=== PATIENT | male | born 1940 | race Hispanic/Latino ===

== ENCOUNTER 2023-09-21 14:19 | Emergency (ER) | payer OTHER ==
--- OUTSIDE RECORDS SUMMARY | 2023-09-21 14:23 | XMS REPORT | Continuity of Care Document ---
:1940 Author Organization [facility] t Address [address] [facility] [place] [address] Care Team Providers Name Role Phone Tyler Sanchez Attending Clinician Unavailable Payers Payer Name Policy Type Policy Number Effective Date Expiration Date S ource [employer] MEDICARE 53 [id number] 2021 Common Sp esun 00:00:[address] [facility] HU[employer]NA MEDICARE C1 [id number] 2020 Common Sp seun 00:00:[address] - [facility] HU[employer]NA MEDICARE C1 [id number] 2020 Common Sp seun 00:00:[address] - [facility] [employer] MEDICARE C1 [id number] 2020 Common Sp seun 00:00:00 [facility] Problems Condition Condition Condition Status Onset Resolution Last Treating Co mments Source Name Details Category Date Date Treatment Clinician Date 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 - [facility] rhinitis, St unspecifie [facility] Urinary Urinary Problem Common tract (tract) Spirit obstructio obstructio - [facility] n n [facility] [id number] Acquired Problem Comm on hypothyroi Spirit dism [facility] [id number] Vitamin D Problem Comm on deficiency [facility] [id number] 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 Social History Social Habit Start Date Stop Date Quantity Comments Source History of Tobacco Use Co mmon [facility] Sex Assigned At Com mon [facility] Smoking Status Start Date Stop Date Source Never Smoker Common [facility] Former Smoker 2021-08-29 00:00:2021-08-29 00:00:00 [facility] Medications Ordered Filled Start Stop Current Ordering Indication Dosage Frequency Signature Comments Components Source Medication Medication Date Date Medication? Clinician (SIG) Name Name Zehra Shahid No 40mg Common (Triamcinol (Triamcinol 7-20 S pirit one) one) 00:00: [facility] Zehra Shahid No 40mg Common (Triamcinol (Triamcinol 7-20 S pirit one) one) 00:00: - [facility] Vitamin B12 Vitamin B12 No Vitamin B12 amLODIPine amLODIPine No amLODIPine Besy-Benaze Besy-Benaze Besy-Benaz pril HCl pril HCl epril HCl 5-10 MG 5-10 MG 5-10 MG amLODIPine amLODIPine No QD amLODIPine Besylate 5 Besylate 5 Besylate 5 MG MG MG Levothyroxi Levothyroxi No Levothyrox ne Sodium ne Sodium ine Sodium 125 MCG 125 MCG 125 MCG Capzasin Capzasin No Capzasin Levothyroxi Levothyroxi No QD Levothyrox ne Sodium ne Sodium ine Sodium 112 MCG 112 MCG 112 MCG Vitamin D3 Vitamin D3 No Vitamin D3 amLODIPine amLODIPine No QD amLODIPine Besy-Benaze Besy-Benaze Besy-Benaz pril HCl pril HCl epril HCl 5-10 MG 5-10 MG 5-10 MG Saw Saw No 2{capsu BID Saw [place] les} [place] 450 MG 450 MG 450 MG Tamsulosin Tamsulosin No Tamsulosin HCl 0.4 MG HCl 0.4 MG HCl 0.4 MG Vitamin B12 Vitamin B12 No Vitamin B12 amLODIPine amLODIPine No amLODIPine Besy-Benaze Besy-Benaze Besy-Benaz pril HCl pril HCl epril HCl 5-10 MG 5-10 MG 5-10 MG amLODIPine amLODIPine No QD amLODIPine Besylate 5 Besylate 5 Besylate 5 MG MG MG Levothyroxi Levothyroxi No Levothyrox ne Sodium ne Sodium ine Sodium 125 MCG 125 MCG 125 MCG Capzasin Capzasin No Capzasin Levothyroxi Levothyroxi No QD Levothyrox ne Sodium ne Sodium ine Sodium 112 MCG 112 MCG 112 MCG Vitamin D3 Vitamin D3 No Vitamin D3 amLODIPine amLODIPine No QD amLODIPine Besy-Benaze Besy-Benaze Besy-Benaz pril HCl pril HCl epril HCl 5-10 MG 5-10 MG 5-10 MG Saw Saw No 2{capsu BID Saw [place] les} [place] 450 MG 450 MG 450 MG Tamsulosin Tamsulosin No Tamsulosin HCl 0.4 MG HCl 0.4 MG HCl 0.4 MG Levothyroxi Levothyroxi No Levothyrox ne Sodium ne Sodium ine Sodium 125 MCG 125 MCG 125 MCG Tamsulosin Tamsulosin No Tamsulosin HCl 0.4 MG HCl 0.4 MG HCl 0.4 MG Vitamin B12 Vitamin B12 No Vitamin B12 amLODIPine amLODIPine No QD amLODIPine Besy-Benaze Besy-Benaze Besy-Benaz pril HCl pril HCl epril HCl 5-10 MG 5-10 MG 5-10 MG Saw Saw No 2{capsu BID Saw [place] les} [place] 450 MG 450 MG 450 MG Levothyroxi Levothyroxi No QD Levothyrox ne Sodium ne Sodium ine Sodium 112 MCG 112 MCG 112 MCG amLODIPine amLODIPine No amLODIPine Besy-Benaze Besy-Benaze Besy-Benaz pril HCl pril HCl epril HCl 5-10 MG 5-10 MG 5-10 MG Tamsulosin Tamsulosin No 2{capsu QD Tamsulosin HCl 0.4 MG HCl 0.4 MG le} HCl 0.4 MG Vitamin D3 Vitamin D3 No Vitamin D3 Levothyroxi Levothyroxi No Levothyrox ne Sodium ne Sodium ine Sodium 125 MCG 125 MCG 125 MCG Tamsulosin Tamsulosin No Tamsulosin HCl 0.4 MG HCl 0.4 MG HCl 0.4 MG Vitamin B12 Vitamin B12 No Vitamin B12 amLODIPine amLODIPine No QD amLODIPine Besy-Benaze Besy-Benaze Besy-Benaz pril HCl pril HCl epril HCl 5-10 MG 5-10 MG 5-10 MG Saw Saw No 2{capsu BID Saw [place] les} [place] 450 MG 450 MG 450 MG Levothyroxi Levothyroxi No QD Levothyrox ne Sodium ne Sodium ine Sodium 112 MCG 112 MCG 112 MCG amLODIPine amLODIPine No amLODIPine Besy-Benaze Besy-Benaze Besy-Benaz pril HCl pril HCl epril HCl 5-10 MG 5-10 MG 5-10 MG Tamsulosin Tamsulosin No 2{capsu QD Tamsulosin HCl 0.4 MG HCl 0.4 MG le} HCl 0.4 MG Vitamin D3 Vitamin D3 No Vitamin D3 amLODIPine amLODIPine No amLODIPine Besy-Benaze Besy-Benaze Besy-Benaz pril HCl pril HCl epril HCl 5-10 MG 5-10 MG 5-10 MG Levothyroxi Levothyroxi No Levothyrox ne Sodium ne Sodium ine Sodium 125 MCG 125 MCG 125 MCG Tamsulosin Tamsulosin No Tamsulosin HCl 0.4 MG HCl 0.4 MG HCl 0.4 MG Vitamin B12 Vitamin B12 No Vitamin B12 Saw Saw No 2{capsu BID Saw [place] les} [place] 450 MG 450 MG 450 MG Tamsulosin Tamsulosin No 2{capsu QD Tamsulosin HCl 0.4 MG HCl 0.4 MG le} HCl 0.4 MG Levothyroxi Levothyroxi No QD Levothyrox ne Sodium ne Sodium ine Sodium 112 MCG 112 MCG 112 MCG Vitamin D3 Vitamin D3 No Vitamin D3 amLODIPine amLODIPine No QD amLODIPine Besy-Benaze Besy-Benaze Besy-Benaz pril HCl pril HCl epril HCl 5-10 MG 5-10 MG 5-10 MG Vitamin B12 Vitamin B12 No Vitamin B12 Levothyroxi Levothyroxi No QD Levothyrox ne Sodium ne Sodium ine Sodium 125 MCG 125 MCG 125 MCG Tamsulosin Tamsulosin No Tamsulosin HCl 0.4 MG HCl 0.4 MG HCl 0.4 MG Tamsulosin Tamsulosin No 2{capsu QD Tamsulosin HCl 0.4 MG HCl 0.4 MG le} HCl 0.4 MG amLODIPine amLODIPine No amLODIPine Besy-Benaze Besy-Benaze Besy-Benaz pril HCl pril HCl epril HCl 5-10 MG 5-10 MG 5-10 MG Vitamin D3 Vitamin D3 No Vitamin D3 Saw Saw No 2{capsu BID Saw [place] les} [place] 450 MG 450 MG 450 MG Levothyroxi Levothyroxi No Levothyrox ne Sodium ne Sodium ine Sodium 112 MCG 112 MCG 112 MCG Vitamin B12 Vitamin B12 No Vitamin B12 Levothyroxi Levothyroxi No QD Levothyrox ne Sodium ne Sodium ine Sodium 125 MCG 125 MCG 125 MCG Tamsulosin Tamsulosin No Tamsulosin HCl 0.4 MG HCl 0.4 MG HCl 0.4 MG Tamsulosin Tamsulosin No 2{capsu QD Tamsulosin HCl 0.4 MG HCl 0.4 MG le} HCl 0.4 MG amLODIPine amLODIPine No amLODIPine Besy-Benaze Besy-Benaze Besy-Benaz pril HCl pril HCl epril HCl 5-10 MG 5-10 MG 5-10 MG Vitamin D3 Vitamin D3 No Vitamin D3 Saw Saw No 2{capsu BID Saw [place] les} [place] 450 MG 450 MG 450 MG Levothyroxi Levothyroxi No Levothyrox ne Sodium ne Sodium ine Sodium 112 MCG 112 MCG 112 MCG Levothyroxi Levothyroxi No QD Levothyrox ne Sodium ne Sodium ine Sodium 112 MCG 112 MCG 112 MCG Vitamin B12 Vitamin B12 No Vitamin B12 Vitamin D3 Vitamin D3 No Vitamin D3 amLODIPine amLODIPine No QD amLODIPine Besylate 5 Besylate 5 Besylate 5 MG MG MG amLODIPine amLODIPine No QD amLODIPine Besy-Benaze Besy-Benaze Besy-Benaz pril HCl pril HCl epril HCl 5-10 MG 5-10 MG 5-10 MG Capzasin Capzasin No Capzasin Tamsulosin Tamsulosin No 2{capsu QD Tamsulosin HCl 0.4 MG HCl 0.4 MG le} HCl 0.4 MG amLODIPine amLODIPine No QD amLODIPine Besy-Benaze Besy-Benaze Besy-Benaz pril HCl pril HCl epril HCl 5-10 MG 5-10 MG 5-10 MG Levothyroxi Levothyroxi No QD Levothyrox ne Sodium ne Sodium ine Sodium 112 MCG 112 MCG 112 MCG Saw Saw No 2{capsu BID Saw [place] les} [place] 450 MG 450 MG 450 MG Levothyroxi Levothyroxi No QD ne Sodium ne Sodium 112 MCG 112 MCG Vitamin D3 Vitamin D3 No Capzasin Capzasin No Saw Saw No 2{capsu BID [place] les} 450 MG 450 MG amLODIPine amLODIPine No Besy-Benaze Besy-Benaze pril HCl pril HCl 5-10 MG 5-10 MG amLODIPine amLODIPine No QD Besylate 5 Besylate 5 MG MG Levothyroxi Levothyroxi No QD ne Sodium ne Sodium 112 MCG 112 MCG Vitamin B12 Vitamin B12 No Levothyroxi Levothyroxi No QD Levothyrox ne Sodium ne Sodium ine Sodium 112 MCG 112 MCG 112 MCG Levothyroxi Levothyroxi No QD Levothyrox ne Sodium ne Sodium ine Sodium 112 MCG 112 MCG 112 MCG Vitamin D3 Vitamin D3 No Vitamin D3 amLODIPine amLODIPine No QD amLODIPine Besy-Benaze Besy-Benaze Besy-Benaz pril HCl pril HCl epril HCl 5-10 MG 5-10 MG 5-10 MG Capzasin Capzasin No Capzasin Vitamin B12 Vitamin B12 No Vitamin B12 amLODIPine amLODIPine No amLODIPine Besy-Benaze Besy-Benaze Besy-Benaz pril HCl pril HCl epril HCl 5-10 MG 5-10 MG 5-10 MG Saw Saw No 2{capsu BID Saw [place] les} [place] 450 MG 450 MG 450 MG amLODIPine amLODIPine No QD amLODIPine Besylate 5 Besylate 5 Besylate 5 MG MG MG Tamsulosin Tamsulosin No 2{capsu QD Tamsulosin HCl 0.4 MG HCl 0.4 MG le} HCl 0.4 MG Tamsulosin Tamsulosin 2021- No 2{capsu QD HCl 0.4 MG HCl 0.4 MG 02-15 le} 00:00 :00 Vital Signs Vital Name Observation Time Observation Value Comments Source height 2023-01-10 13:00:00 68 [in_i] Common [facility] weight 2023-01-10 13:00:00 186 [lb_av] Common [facility] temperature 2023-01-10 13:00:00 97.9 [degF] Common [facility] bmi 2023-01-10 13:00:00 28.28 kg/m2 Common [facility] oximetry 2023-01-10 13:00:00 93 % Common [facility] respiratory rate 2023-01-10 13:00:00 16 /min Comm on [facility] blood pressure 2023-01-10 13:00:00 113 mm[Hg] Common [facility] - systolic [facility] blood pressure 2023-01-10 13:00:00 55 mm[Hg] Common [facility] - diastolic [facility] height 2023-01-10 13:00:00 68 [in_i] Common [facility] weight 2023-01-10 13:00:00 186 [lb_av] Common [facility] temperature 2023-01-10 13:00:00 97.9 [degF] Common [facility] bmi 2023-01-10 13:00:00 28.28 kg/m2 Common [facility] oximetry 2023-01-10 13:00:00 93 % Common [facility] respiratory rate 2023-01-10 13:00:00 16 /min Comm on [facility] blood pressure 2023-01-10 13:00:00 113 mm[Hg] Common [facility] - systolic [facility] blood pressure 2023-01-10 13:00:00 55 mm[Hg] Common [facility] - diastolic [facility] height 2022-09-10 13:20:00 68 [in_i] Common [facility] weight 2022-09-10 13:20:00 186.7 [lb_av] Common [facility] temperature 2022-09-10 13:20:00 96.5 [degF] Common S pirit [facility] bmi 2022-09-10 13:20:00 28.38 kg/m2 Common [facility] oximetry 2022-09-10 13:20:00 95 % [facility] respiratory rate 2022-09-10 13:20:00 16 /min Comm on [facility] blood pressure 2022-09-10 13:20:00 118 mm[Hg] Common [facility] - systolic [facility] blood pressure 2022-09-10 13:20:00 57 mm[Hg] Common [facility] - diastolic [facility] height 2022-05-10 13:00:00 68 [in_i] Common [facility] weight 2022-05-10 13:00:00 186 [lb_av] [facility] temperature 2022-05-10 13:00:00 98.1 [degF] Common [facility] bmi 2022-05-10 13:00:00 28.28 kg/m2 [facility] oximetry 2022-05-10 13:00:00 98 % [facility] respiratory rate 2022-05-10 13:00:00 16 /min Comm on [facility] blood pressure 2022-05-10 13:00:00 135 mm[Hg] Common [facility] - systolic [facility] blood pressure 2022-05-10 13:00:00 72 mm[Hg] Common [facility] - diastolic [facility] height 2022-01-08 14:00:00 68 [in_i] Common [facility] weight 2022-01-08 14:00:00 185.7 [lb_av] Common [facility] temperature 2022-01-08 14:00:00 97.3 [degF] Common [facility] bmi 2022-01-08 14:00:00 28.23 kg/m2 Common [facility] oximetry 2022-01-08 14:00:00 97 % Common [facility] respiratory rate 2022-01-08 14:00:00 17 /min Comm on [facility] blood pressure 2022-01-08 14:00:00 135 mm[Hg] Common [facility] - systolic [facility] blood pressure 2022-01-08 14:00:00 76 mm[Hg] Common [facility] - diastolic [facility] height 2022-01-08 14:00:00 68 [in_i] Common [facility] weight 2022-01-08 14:00:00 185.7 [lb_av] [facility] temperature 2022-01-08 14:00:00 97.3 [degF] [facility] bmi 2022-01-08 14:00:00 28.23 kg/m2 [facility] oximetry 2022-01-08 14:00:00 97 % [facility] respiratory rate 2022-01-08 14:00:00 17 /min Comm on [facility] blood pressure 2022-01-08 14:00:00 135 mm[Hg] Common [facility] - systolic [facility] blood pressure 2022-01-08 14:00:00 76 mm[Hg] Common [facility] diastolic [facility] height 2021-09-18 10:00:00 68 [in_i] Common [facility] weight 2021-09-18 10:00:00 186.4 [lb_av] [facility] temperature 2021-09-18 10:00:00 97.6 [degF] [facility] bmi 2021-09-18 10:00:00 28.34 kg/m2 [facility] oximetry 2021-09-18 10:00:00 96 % [facility] respiratory rate 2021-09-18 10:00:00 16 /min Comm on [facility] blood pressure 2021-09-18 10:00:00 138 mm[Hg] Common [facility] - systolic [facility] blood pressure 2021-09-18 10:00:00 67 mm[Hg] Common [facility] - diastolic [facility] height 2021-06-05 10:50:00 68 [in_i] Common [facility] weight 2021-06-05 10:50:00 185.7 [lb_av] Common [facility] temperature 2021-06-05 10:50:00 97.3 [degF] Common [facility] bmi 2021-06-05 10:50:00 28.23 kg/m2 [facility] oximetry 2021-06-05 10:50:00 97 % [facility] respiratory rate 2021-06-05 10:50:00 17 /min Comm on [facility] blood pressure 2021-06-05 10:50:00 134 mm[Hg] Common [facility] - systolic [facility] blood pressure 2021-06-05 10:50:00 61 mm[Hg] Common [facility] - diastolic [facility] Procedures This patient has no known procedures. Encounters Start End Encounter Admission Attending Care Care Encounter Source Date/Time Date/Time Type Type Clinicians Facility Department ID 2022-09-06 Outpatient Sanchez, STLMLC STLC [id number] Common 13:48:01 Tyler [facility] 2022-05-11 Outpatient Sanchez, STLMLC STLC [id number] Common 08:12:01 Tyler [facility] 2022-01-04 Outpatient Sanchez, STLMLC STLMLC [id number] Common 14:45:02 Tyler [facility] 2021-11-15 Outpatient Sanchez, STLMLC STLC [id number] Common 14:20:42 Tyler [address] [facility] 2021-11-15 Outpatient Sanchez, STLMLC STLMLC [id number] Common 13:38:14 Tyler [address] [facility] 2021-11-15 Outpatient Sanchez, STLMLC STLMLC [id number] Common 13:04:54 Tyler [address] [facility] 2021-11-15 Outpatient STLMLC STLMLC [id number] Common 12:23:41 [id number] [facility] 2023-01-10 2023-01-10 SUB ANNUAL STLMLC STLMLC [id number] Common 00:00:00 00:00:00 MCR Spirit WELLNESS - CHI VISIT [facility] 2023-01-10 2023-01-10 OFFICE STLMLC STLMLC [id number] Co mmon 00:00:00 00:00:00 VISIT Spirit ESTAB PT - CHI LEVEL 3 [facility] 2022-09-10 2022-09-10 OFFICE STLMLC STLMLC [id number] Co mmon 00:00:00 00:00:00 VISIT EST Spir it PT LEVEL 3 - CHI [facility] 2022-05-10 2022-05-10 OFFICE STLMLC STLMLC [id number] Co mmon 00:00:00 00:00:00 VISIT Spirit ESTAB PT - CHI LEVEL 4 [facility] 2022-05-10 2022-05-10 (TEL) STLMLC STLMLC [id number] Co mmon 00:00:00 00:00:00 [facility] 2022-01-08 2022-01-08 SUB ANNUAL STLMLC STLMLC [id number] Common 00:00:00 00:00:00 MCR Spirit WELLNESS - CHI VISIT [facility] 2022-01-08 2022-01-08 OFFICE STLMLC STLMLC [id number] Co mmon 00:00:00 00:00:00 VISIT Spirit ESTAB PT - CHI LEVEL 4 [facility] 2021-09-18 2021-09-18 OFFICE STLMLC STLMLC [id number] Co mmon 00:00:00 00:00:00 VISIT Spirit ESTAB PT - CHI LEVEL 4 [facility] 2021-09-06 2021-09-06 (TEL) STLMLC STLMLC [id number] Co mmon 00:00:00 00:00:00 Spirit [facility] 2021-06-05 2021-06-05 OFFICE STLMLC STLMLC [id number] Co mmon 00:00:00 00:00:00 VISIT [facility] LEVEL 4 [facility] 2021-03-08 2021-03-08 Outpatient STLMLC STLMLC [id number] Common 00:00:00 00:00:00 [facility] 2021-02-23 2021-02-23 Outpatient STLMLC STLMLC [id number] Common 00:00:00 00:00:00 [facility] 2020-12-13 2020-12-13 Outpatient STLMLC STLMLC [id number] Common 00:00:00 00:00:00 [facility] 2020-12-13 2020-12-13 Outpatient STLMLC STLMLC [id number] Common 00:00:00 00:00:00 [facility] 2020-11-17 2020-11-17 Outpatient STLMLC STLMLC [id number] Common 00:00:00 00:00:00 [facility] 2020-11-10 2020-11-10 Outpatient STLMLC STLMLC [id number] Common 00:00:00 00:00:00 [facility] Results Test Description Test Time Test Comments Results Result Comments Source CBC W/AUTO DIFF 2023-05-02 00:00:00 Test Item Value Reference Range Interpretation Comme nts NUCLEATED RBCS (test code 0.0 /100 WBC'S See_Comment [Automated message] The = 94005-9) system which ge nerated this result transmit tobias reference range: 0.0 /100 WBC'S. The reference range was not used to interpret th is result as normal/abnormal . ABSOLUTE EOSINOPHILS (test 0.28 K/UL See_Comment [Automated message] The code = 16879-2) system which generated this result transmit tobias reference range: 0.00-0.5 0 K/UL. The reference range was not used to interpret th is result as normal/abnormal . ABSOLUTE LYMPHOCYTES (test 1.52 K/UL See_Comment [Automated message] The code = 10226-1) system which generated this result transmit tobias reference range: 1.00-4.0 0 K/UL. The reference range was not used to interpret th is result as normal/abnormal . ABSOLUTE MONOCYTES (test 0.49 K/UL See_Comment [A utomated message] The code = 43694-8) system which generated this result transmit tobias reference range: 0.20-1.0 0 K/UL. The reference range was not used to interpret th is result as normal/abnormal . ABSOLUTE NEUTROPHILS (test 2.36 K/UL See_Comment [Automated message] The code = 38819-6) system which generated this result transmit tobias reference range: 1.50-7.5 0 K/UL. The reference range was not used to interpret th is result as normal/abnormal . BASOPHILS (test code = 1.0 % 54149-8) EOSINOPHILS (test code = 5.8 % 62020-6) HEMATOCRIT (test code = 38.8 % See_Comment L [Au tomated message] The 29018-2) system which ge nerated this result transmit tobias reference range: 40.0-51. 0 %. The reference range was not used to interpret th is result as normal/abnormal . HEMOGLOBIN (test code = 13.8 G/DL See_Comment [Au tomated message] The 718-7) system which ge nerated this result transmit tobias reference range: 13.5-17. 0 G/DL. The reference range was not used to interpret th is result as normal/abnormal . LYMPHOCYTES (test code = 31.7 % 64376-9) MCH (test code = 34825-0) 31.6 PG See_Comment [ Automated message] The system which [facility] nerated this result transmit tobias reference range: 25.0-33. 0 PG. The reference range was not used to interpret th is result as normal/abnormal . MCHC (test code = 47808-7) 35.6 G/DL See_Comment [Automated message] The system which [facility] nerated this result transmit tobias reference range: 31.0-36. 0 G/DL. The reference range was not used to interpret th is result as normal/abnormal . MCV (test code = 69788-0) 88.8 fL See_Comment [ Automated message] The system which ge nerated this result transmit tobias reference range: 80.0-99. 0 fL. The reference range was not used to interpret th is result as normal/abnormal . MONOCYTES (test code = 10.2 % 05195-7) NEUTROPHILS (test code = 49.2 % 66071-2) PLATELET COUNT (test code 205 K/UL See_Comment [ Automated message] The = 54947-3) system which [facility] nerated this result transmit tobias reference range: 130-400 K/UL. The reference range was not used to interpret th is result as normal/abnormal . RBC (test code = 04679-6) 4.37 M/UL See_Comment L [ Automated message] The system which [facility] nerated this result transmit tobias reference range: 4.50-6.1 0 M/UL. The reference range was not used to interpret th is result as normal/abnormal . RDW (test code = 73458-1) 13.1 % See_Comment [ Automated message] The system which [facility] [facility] nerated this result transmit tobias reference range: 11.5-15. 0 %. The reference range was not used to interpret th is result as normal/abnormal . WBC (test code = 61227-9) 4.8 K/UL See_Comment [ Automated message] The system which [facility] nerated this result transmit tobias reference range: 3.5-11.0 K/UL. The reference range was not used to interpret th is result as normal/abnormal . HEMOGLOBIN [id number] 00:00:00 Test Item Value Reference Range Interpretation Comments HEMOGLOBIN A1c (test 5.5 % See_Comment [Autom ated message] The code = 4548-4) system which generated this result tra nsmitted reference range : 4.2-5.6 %. The referenc e range was not used to interpret this result as normal/abnormal . FREE T4 (THYROXINE)2023-05-02 00:00:00 Test Item Value Reference Range Interpretation Comments FREE T4 1.15 NG/DL See_Comment [Automated mes nichelle] The (THYROXINE) (test system [facility] generated code = 3024-7) this result t ransmitted reference range : 0.80-1.90 NG/DL . The reference range was not used to interpr et this result as normal/abnormal . TSH REFLEX TO FREE [id number] 00:00:00 Test Item Value Reference Range Interpretation Comments TSH REFLEX TO FREE 7.690 UIU/ML See_Comment H [Automat ed message] T4 (test code = The system w [facility] 29411-0) generated this result transmitted ref erence range: 0.400-4. 100 UIU/ML. The ref erence range was not u sed to interpret this result as normal/abnor mal. COMPREHENSIVE METABOLIC [id number] 00:00:00 Test Item Value Reference Range Interpretation Comments ALBUMIN (test code = 4.3 G/DL See_Comment [Autom ated message] 2557-7) The system [employer] generated this result transmit tobias reference range : 3.5-5.2 G/DL. T he reference range was not used to interpret this result as normal/abnormal . ALKALINE PHOSPHATASE 126 U/L See_Comment H [Autom ated message] (test code = 6768-6) The sys tem which generated this result transmit tobias reference range : 40-125 U/L. The reference range was not used to interpret this result as normal/abnormal . BILIRUBIN, TOTAL 0.6 MG/DL See_Comment [Automated message] (test code = 1975-2) The sys tem which generated this result transmit tobias reference range : <=1.2 MG/DL. Th e reference range was not used to interpret this result as normal/abnormal . BUN (test code = 14 MG/DL See_Comment [Automated message] 3094-0) The system [employer] generated this result transmit tobias reference range : 8-23 MG/DL. The reference range was not used to interpret this result as normal/abnormal . CALCIUM (test code = 9.0 MG/DL See_Comment [Autom ated message] 60380-0) The system [employer] generated this result transmit tobias reference range : 8.5-10.5 MG/DL. The reference range was not used to interpret this result as normal/abnormal . CALC A/G RATIO (test 2.0 RATIO See_Comment [Autom ated message] code = 1759-0) The system [employer] generated this result transmit tobias reference range : 1.0-2.6 RATIO. The reference range was not used to interpret this result as normal/abnormal . CALC BUN/CREAT (test 17 RATIO See_Comment [Autom ated message] code = 3097-3) The system [employer] generated this result transmit tobias reference range : 6-28 RATIO. The reference range was not used to interpret this result as normal/abnormal . CALC GLOBULIN (test 2.1 G/DL See_Comment [Automa tobias message] code = 32344-1) The system [facility] generated this result transmit tobias reference range : 1.9-3.7 G/DL. T he reference range was not used to interpret this result as normal/abnormal . CARBON DIOXIDE (test 27 MEQ/L See_Comment [Autom ated message] code = 1963-8) The system [facility] generated this result transmit tobias reference range : 19-31 MEQ/L. Th e reference range was not used to interpret this result as normal/abnormal . CHLORIDE (test code 105 MEQ/L See_Comment [Automa tobias message] = 2075-0) The system [facility] generated this result transmit tobias reference range : 95-107 MEQ/L. T he reference range was not used to interpret this result as normal/abnormal . CREATININE (test 0.84 MG/DL See_Comment [Automated message] code = 2160-0) The system [facility] generated this result transmit tobias reference range : 0.80-1.40 MG/DL . The reference range was not used to interpret this result as normal/abnormal . eGFR (2020 CKD-EPI) 88 ML/MIN/1.73 See_Comment [Auto mated message] (test code = The system [facility] [address]-2) generated this result transmit tobias reference range : >60 ML/MIN/1.73. Th e reference range was not used to interpret this result as normal/abnormal . GLUCOSE (test code = 100 MG/DL See_Comment H [Autom ated message] 1558-6) The system [facility] generated this result transmit tobias reference range : 70-99 MG/DL. Th e reference range was not used to interpret this result as normal/abnormal . POTASSIUM (test code 4.2 MEQ/L See_Comment [Autom ated message] = 2823-3) The system [facility] generated this result transmit tobias reference range : 3.5-5.4 MEQ/L. The reference range was not used to interpret this result as normal/abnormal . PROTEIN, TOTAL (test 6.4 G/DL See_Comment [Autom ated message] code = 2885-2) The system [facility] generated this result transmit tobias reference range : 6.1-8.3 G/DL. T he reference range was not used to interpret this result as normal/abnormal . AST (test code = 15 U/L See_Comment [Automated message] 1920-8) The system [employer] generated this result transmit tobias reference range : 9-50 U/L. The reference range was not used to interpret this result as normal/abnormal . ALT (test code = 16 U/L See_Comment [Automated message] 0162-6) The system [employer] generated this result transmit tobias reference range : 5-50 U/L. The reference range was not used to interpret this result as normal/abnormal . SODIUM (test code = 141 MEQ/L See_Comment [Automa tobias message] 6771-2) The system [employer] generated this result transmit tobias reference range : 133-146 MEQ/L. The reference range was not used to interpret this result as normal/abnormal .
[2023-09-21 14:46] LABS: Absolute Lymphocytes (CBC) 1.1 K/uL (0.7-4.9); Lymphocytes % 17.9 % (15.3-44.8); MCV 91.3 fL (80-100); MPV 8.7 fL (7.6-11.3); Platelets 194 thou/uL (152-406); RBC Red Blood Cell Count 3.95 M/uL (4.33-5.43)
[2023-09-21] MEDS ORDERED: NA CHLORIDE 0.9% 1,000 ML ONE (14:47)
[2023-09-21 14:48] LABS: Protime INR 1.25
--- NOTE | 2023-09-21 15:01 | RAD REPORT ---
EXAM DESCRIPTION: CT - Head Brain Wo Cont - 09/21/2023 2:56 pm CLINICAL HISTORY: SYNCOPE Headache, drowsiness COMPARISON: <Comparisons> TECHNIQUE: All CT scans are performed using dose optimization technique as appropriate and may inclu de automated exposure control or mA/KV adjustment according to patient size. FINDINGS: No intracranial hemorrhage, hydrocephalus or extra-axial fluid collection.Moderate brain a trophy.No areas of brain edema or evidence of midline shift. The paranasal sinuses and mastoids are essentially clear. The calvarium is intact. IMPRESSION: No acute intracranial abnormality.
--- NOTE | 2023-09-21 15:08 | RAD REPORT ---
EXAM DESCRIPTION: RAD - Chest Single View - 09/21/2023 3:02 pm CLINICAL HISTORY: COUGH Chest pain. COMPARISON: <Comparisons> FINDINGS: Portable technique limits examination quality. Interstitial opacities may indicate mild interstitial pulmonary edema or interstitial infection. The heart is normal in size. No displaced fractures.Aortic atherosclerosis.
[2023-09-21 15:09] LABS: ALT/SGPT 17 U/L (16-61); AST/SGOT 10 U/L (15-37); Albumin 2.8 g/dL (3.4-5.0); Alkaline Phosphatase 90 U/L (45-117); BUN Blood Urea Nitrogen 13 mg/dL (7-18); Bicarbonate 28 mEq/L (21-32); Bilirubin Total 0.4 mg/dL (0.2-1.0); Glomerular Filtration Rate 86 ml/min (=/>90); Glucose Level 105 mg/dL (74-106); Lipase 18 U/L (13-75); Magnesium 2.1 mg/dL (1.6-2.4); NT PRO-BNP 295 pg/mL (<450); Potassium 3.6 mEq/L (3.5-5.1); Protein, Total 5.7 g/dL (6.4-8.2); Sodium Level 141 mEq/L (136-145); Troponin High Sensitivity 9.7 pg/mL (<58.9)
[2023-09-21 15:16] LABS: Bilirubin Direct < 0.1 mg/dL (0-0.2); Bilirubin Indirect, Calculated ND mg/dL (0.2-0.8)
--- NOTE | 2023-09-21 15:31 | EDPHYS ---
Physician Documentation [facility] Name: Lionel Graff Jr Age: 83 yrs Sex: Male : 1940 Arrival Date: 09/21/2023 Time: 14:19 Bed 7 Private MD: ED Physician Jethro Niño HPI: 09/21 15:23 This 83 yrs old Male presents to ER via EMS with complaints of Syncope. lalit 15:23 The patient has experienced near-syncope, almost passed out, felt dizzy. Onset: The lalit symptoms/episode began/occurred just prior to arrival. Duration: This was a single episode, that lasted 30 second(s). Context: the episode(s) was witnessed, by EMS personnel, by family. Associated injury: The patient did not suffer any apparent associated injury. Associated signs and symptoms: The patient has no apparent associated signs or symptoms. Current symptoms: Currently, the patient is not experiencing any symptoms. The patient has experienced similar episodes in the past, multiple times. Historical: - Allergies: 14:25 No Known Allergies; aa5 - PMHx: 14:25 Hypertensive disorder; prostate issues; aa5 - Immunization history:: Adult Immunizations unknown. - Social history:: Smoking status: Patient denies any tobacco usage or history of. - Family history:: not pertinent. ROS: 15:23 Constitutional: Negative for fever, chills, and weight loss, Eyes: Negative for injury, lalit pain, redness, and discharge, ENT: Negative for injury, pain, and discharge, Neck: Negative for injury, pain, and swelling, Cardiovascular: Negative for chest pain, palpitations, and edema, Respiratory: Negative for shortness of breath, cough, wheezing, and pleuritic chest pain, Abdomen/GI: Negative for abdominal pain, nausea, vomiting, diarrhea, and constipation, Back: Negative for injury and pain, : Negative for injury, bleeding, discharge, and swelling, MS/Extremity: Negative for injury and deformity, Skin: Negative for injury, rash, and discoloration, Psych: Negative for depression, anxiety, suicide ideation, homicidal ideation, and hallucinations, Allergy/Immunology: Negative for hives, rash, and allergies, Endocrine: Negative for neck swelling, polydipsia, polyuria, polyphagia, and marked weight changes, Hematologic/Lymphatic: Negative for swollen nodes, abnormal bleeding, and unusual bruising, 15:23 Neuro: Positive for near syncope, Exam: 15:23 Constitutional: This is a well developed, well nourished patient who is awake, alert, lalit and in no acute distress. Head/Face: Normocephalic, atraumatic. Eyes: Pupils equal round and reactive to light, extra-ocular motions intact. Lids and lashes normal. Conjunctiva and sclera are non-icteric and not injected. Cornea within normal limits. Periorbital areas with no swelling, redness, or edema. ENT: Nares patent. No nasal discharge, no septal abnormalities noted. Tympanic membranes are normal and external auditory canals are clear. Oropharynx with no redness, swelling, or masses, exudates, or evidence of obstruction, uvula midline. Mucous membranes moist. Neck: Trachea midline, no thyromegaly or masses palpated, and no cervical lymphadenopathy. Supple, full range of motion without nuchal rigidity, or vertebral point tenderness. No Meningismus. Chest/axilla: Normal chest wall appearance and motion. Nontender with no deformity. No lesions are appreciated. Cardiovascular: Regular rate and rhythm with a normal S1 and S2. No gallops, murmurs, or rubs. Normal PMI, no JVD. No pulse deficits. Respiratory: Lungs have equal breath sounds bilaterally, clear to auscultation and percussion. No rales, rhonchi or wheezes noted. No increased work of breathing, no retractions or nasal flaring. Abdomen/GI: Soft, non-tender, with normal bowel sounds. No distension or tympany. No guarding or rebound. No evidence of tenderness throughout. Back: No spinal tenderness. No costovertebral tenderness. Full range of motion. Male : Normal genitalia with no discharge or lesions. Skin: Warm, dry with normal turgor. Normal color with no rashes, no lesions, and no evidence of cellulitis. MS/ Extremity: Pulses equal, no cyanosis. Neurovascular intact. Full, normal range of motion. Neuro: Awake and alert, GCS 15, oriented to person, place, time, and situation. Cranial nerves II-XII grossly intact. Motor strength 5/5 in all extremities. Sensory grossly intact. Cerebellar exam normal. Normal gait. Psych: Awake, alert, with orientation to person, place and time. Behavior, mood, and affect are within normal limits. 15:23 Cardiovascular: Rate: bradycardic, actual rate is 57 bpm, Rhythm: regular, Pulses: Pulses are 4+ in bilateral radial, brachial, femoral, popliteal, posterior tibial and and dorsalis pedis arteries.. Heart sounds: normal, Edema: is not appreciated, JVD: is not appreciated, 15:23 ECG was reviewed by the Attending Physician. 15:27 Musculoskeletal/extremity: ROM: no acute changes, Circulation is intact in all lalit extremities. Sensation intact. Compartment Syndrome exam of affected extremity: is normal. Weight bearing: able to fully bear weight, without difficulty, DVT Exam: No signs of deep vein thrombosis. no pain, no swelling, no tenderness, negative Homans' sign noted on exam, no appreciated bluish discoloration, no erythema, no increased warmth, 15:29 Neck: C-spine: appears grossly normal, no acute changes, Thyroid: appears normal, no lalit acute changes, Trachea: is midline with no obvious abnormalities, no acute changes, ROM/movement: is normal, no acute changes, Lymph nodes: no appreciated lymphadenopathy, 15:29 Chest/axilla: Inspection: normal, no acute changes, Palpation: is normal, no acute changes, Axilla: are normal, no acute changes, Lymph nodes: lymphadenopathy is not appreciated, Vital Signs: 14:25 BP 124 / 68; Pulse 57; Resp 18 S; Temp 97.8(O); Pulse Ox 97% on R/A; Weight 83.01 kg aa5 (R); Height 5 ft. 6 in. (R); Pain 0/10; 16:09 BP 129 / 67; Pulse 60; Resp 16; Pulse Ox 97% on R/A; iw 14:25 Body Mass Index 29.54 (83.01 kg, 167.64 cm) aa5 14:25 Pain Scale: Adult aa5 NIH Stroke Scale Scores: 15:27 NIHSS Score: 0 lalit MDM: 14:26 Patient medically screened. llait 15:25 Differential Diagnosis: aortic aneurysm, cardiac arrhythmia, cerebrovascular accident, lalit emotional response, GI bleed, idiopathic syncope, pseudo seizure, seizure, vasovagal episode. Data reviewed: vital signs, nurses notes, EMS record, lab test result(s), EKG, radiologic studies, CT scan, plain films. Consideration of Admission/Observation Escalation of care including admission/observation considered. I considered the following discharge prescriptions or medication management in the emergency department Medications were administered in the Emergency Department. See MAR. Independent interpretation of the following test(s) in the Emergency Department EKG: See my EKG interpretation above. Test considered but Not performed: MRI: NO MRI. Historians other than the Patient: Daughter/Son: DAUGHTER WELL INFORMED. Care significantly affected by the following chronic conditions: Hypertension, Obesity. 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 09/21 14:27 Order name: Basic Metabolic Panel; Complete Time: 15:21 [facility] 09/21 14:27 Order name: CBC with Diff; Complete Time: 15:21 [facility] 09/21 14:27 Order name: LFT's; Complete Time: 15:21 [facility] 09/21 14:27 Order name: Magnesium; Complete Time: 15:21 [facility] 09/21 14:27 Order name: NT PRO-BNP; Complete Time: 15:21 lalit 09/21 14:27 Order name: PT-INR; Complete Time: 15:21 lalit 09/21 14:27 Order name: Troponin HS; Complete Time: 15:21 [facility] 09/21 14:27 Order name: Lipase; Complete Time: 15:21 [facility] 09/21 14:27 Order name: XRAY Chest (1 view); Complete Time: 15:21 09/21 14:27 Order name: CT Head Brain wo Cont; Complete Time: 15:21 [facility] 09/21 14:27 Order name: EKG; Complete Time: 14:27 09/21 14:27 Order name: Cardiac monitoring; Complete Time: 14:32 lalit 09/21 14:27 Order name: EKG - Nurse/Tech; Complete Time: 14:51 09/21 14:27 Order name: IV Saline Lock; Complete Time: 14:32 [facility] 09/21 14:27 Order name: Labs collected and sent; Complete Time: 14:36 [facility] 09/21 14:27 Order name: O2 Per Protocol; Complete Time: 14:32 09/21 14:27 Order name: O2 Sat Monitoring; Complete Time: 14:32 [facility] 09/21 15:23 Order name: Orthostatics; Complete Time: 07:36 lalit 09/21 15:30 Order name: PO challenge; Complete Time: 16:07 lalit EC: Rate is 55 beats/min. Rhythm is regular. QRS [place] is Normal. NC interval is normal. QRS lalit interval is normal. QT interval is normal. No Q waves. T waves are Normal. No ST changes noted. Clinical impression: Sinus bradycardia and No evidence of ischemia. Interpreted by me. Reviewed by me. Administered Medications: 14:50 Drug: NS 0.9% IV 1000 ml IV at 125 ml/hr continuous Route: IV; Rate: 125 ml/hr; Site: aa5 left antecubital; 16:07 Follow up: IV Status: Completed infusion iw 14:51 CANCELLED (Physician Discretion; Received 1 L NS bolus by EMS): ns 0.9% 1000 ml IV at 1 aa5 bolus Per protocol; 1000 mL bolus 16:07 Drug: Aspirin PO Chewable Tablet 162 mg PO once Route: PO; iw 16:30 Follow up: Response: No adverse reaction iw Disposition Summary: 09/21/23 15:31 Discharge Ordered Notes: Location: Home lalit Problem: new lalit Symptoms: have improved lalit Condition: Stable lalit Diagnosis - Bradycardia, unspecified lalit - Syncope Near lalit Followup: lalit - With: Private Physician - When: 2 - 3 days - Reason: Recheck today's complaints, Continuance of care, Re-evaluation by your physician Followup: lalit - With: Raghav Bocanegra MD - When: 2 - 3 days - Reason: Recheck today's complaints, Re-evaluation by your physician Discharge Instructions: - Discharge Summary Sheet lalit - Bradycardia, Adult lalit - Near-Syncope lalit - Weakness lalit - Near-Syncope, Tnry-ov-Ewsy lalit - Weakness, Svxi-yx-Dleb lalit - Aspirin and Your Heart lalit Forms: - Medication Reconciliation Form lalit - Thank You Letter lalit - Antibiotic Education lalit - Prescription Opioid Use lalit - Patient Portal Instructions lalit - Leadership Thank You Letter [facility] NIH Stroke Scale - NIH Stroke Score Date: 09/21/2023 Time: 15:27 Total Score = 0 10. Dysarthria (speech clarity - read or repeat words) - 0(Normal) 11. Extinction and Inattention (visual/tactile/auditory/spatial/personal) - 0(No abnormality) 1a. Level of Consciousness (LOC) - 0(Alert) 1b. Level of Consciousness (LOC) (Month \T\ Age) - 0(Both) 1c. LOC Commands (Open \T\ Closes Eyes/Machine Precision Etcher) - 0(Both) 2. Best Gaze (Lateral Gaze Paresis) - 0(Normal) 3. Visual Field Loss - 0(No visual loss) 4. Facial Palsy - 0(Normal) 5a. Left Arm: Motor (10-second hold) - 0(No drift) 5b. Right Arm: Motor (10-second hold) - 0(No drift) 6a. Left Leg: Motor (5-second hold - always test supine) - 0(No drift) 6b. Right Leg: Motor (5-second hold - always test supine) - 0(No drift) 7. Limb Ataxia (finger/nose \T\ heel/bowles - test with eyes open) - 0(Absent) 8. Sensory Loss (pinprick arms/legs/face) - 0(Normal) 9. Best Language: Aphasia (description/naming/reading) - 0(No aphasia) Initials: [facility] Signatures: Dispatcher [employer] EDJethro Courtney MD MD cha Williams, Irene, RN RN Faith Teresa, RN RN aa5 Corrections: (The following items were deleted from the chart) 14:51 14:27 NS 0.9% IV 1000 ml IV at 1 bolus Per protocol; 1000 mL bolus ordered. [facility] aa5 14:51 14:39 NS 0.9% IV 1000 ml IV at 1 bolus Per protocol; 1000 mL bolus given. aa5 14:51 14:50 NS 0.9% IV 1000 ml IV at 1 bolus Per protocol; 1000 mL bolus ordered. aa5 aa5
--- NOTE | 2023-09-21 15:31 | ER ---
Nurse's Notes 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 EMS reports pt was found pale, cool, and diaphoretic upon scene arrival, initial BP was 86/50, HR 50, FSBG 109. Pt states he felt dizzy before episode. 18G to L AC noted, 1000mls NS complete. 14:25 Coronavirus screen: At this time, the client does not indicate any symptoms associated aa5 with coronavirus-19. Ebola Screen: Patient denies travel to an Ebola-affected area in the 21 days before illness onset. Initial Sepsis Screen: Does the patient meet any 2 criteria? No. Patient's initial sepsis screen is negative. Does the patient have a suspected source of infection? No. Patient's initial sepsis screen is negative. Risk Assessment: Do you want to hurt yourself or someone else? Patient reports no desire to harm self or others. Onset of symptoms was September 21, 2023. 14:25 Acuity: JCARLOS 2 aa5 14:25 Method Of Arrival: EMS: [facility] aa5 Triage Assessment: 14:25 General: Appears comfortable, Behavior is calm, cooperative. Pain: Denies pain. Neuro: aa5 Level of Consciousness is awake, alert, obeys commands, Oriented to person, place, time, situation. Derm: Skin is clammy, Skin is normal, Skin temperature is cool. 14:25 Neuro: Reports. iw Historical: - Allergies: 14:25 No Known Allergies; aa5 - PMHx: 14:25 Hypertensive disorder; prostate issues; aa5 - Immunization history:: Adult Immunizations unknown. - Social history:: Smoking status: Patient denies any tobacco usage or history of. - Family history:: not pertinent. Screenin:39 [facility] ED Fall Risk Assessment (Adult) Score/Fall Risk Level 0 - 2 = Low Risk. Abuse iw screen: Denies threats or abuse. Denies injuries from another. Nutritional screening: No deficits noted. Tuberculosis screening: No symptoms or risk factors identified. Assessment: 14:39 General: Appears in no apparent distress. Behavior is calm, cooperative. Neuro: Level iw of Consciousness is awake, alert, obeys commands, Oriented to person, place, time, situation, Moves all extremities. Full function. Cardiovascular: Denies chest pain, shortness of breath, Rhythm is sinus bradycardia. Respiratory: Respiratory effort is even, unlabored, Respiratory pattern is regular, symmetrical. GI: Abdomen is flat, non-distended. Derm: Skin is intact, is healthy with good turgor. Musculoskeletal: Range of motion: intact in all extremities. Vital Signs: 14:25 BP 124 / 68; Pulse 57; Resp 18 S; Temp 97.8(O); Pulse Ox 97% on R/A; Weight 83.01 kg aa5 (R); Height 5 ft. 6 in. (R); Pain 0/10; 16:09 BP 129 / 67; Pulse 60; Resp 16; Pulse Ox 97% on R/A; iw 14:25 Body Mass Index 29.54 (83.01 kg, 167.64 cm) aa5 14:25 Pain Scale: Adult aa5 NIH Stroke Scale Scores: 15:27 NIHSS Score: 0 lalit ED Course: 14:25 Patient arrived in ED. lalit 14:25 Jethro Niño MD is Attending Physician. lalit 14:25 Arm band placed on. aa5 14:31 Triage completed. aa5 14:35 Eliana Conley, RN is Primary Nurse. iw 14:36 Maintain EMS IV. Dressing intact. Good blood return noted. Site clean \T\ dry. Gauge \T\ iw site: 18 LAC. 14:39 Patient has correct armband on for positive identification. Provided Education on: . iw 14:58 CT Head Brain wo Cont In Process Unspecified. EDMS 15:04 XRAY Chest (1 view) In Process Unspecified. EDMS 15:30 Raghav Bocanegra MD is Referral Physician. lalit 16:08 No provider procedures requiring assistance completed. IV discontinued, intact, iw bleeding controlled, No redness/swelling at site. Pressure dressing applied. Administered Medications: 14:50 Drug: NS 0.9% IV 1000 ml IV at 125 ml/hr continuous Route: IV; Rate: 125 ml/hr; Site: aa5 left antecubital; 16:07 Follow up: IV Status: Completed infusion iw 14:51 CANCELLED (Physician Discretion; Received 1 L NS bolus by EMS): ns 0.9% 1000 ml IV at 1 aa5 bolus Per protocol; 1000 mL bolus 16:07 Drug: Aspirin PO Chewable Tablet 162 mg PO once Route: PO; iw 16:30 Follow up: Response: No adverse reaction iw Medication: 14:39 VIS not applicable for this client. iw Outcome: 15:31 Discharge ordered by . [facility] 16:08 Discharged to home ambulatory, with family, iw 16:08 Condition: good 16:08 Discharge instructions given to patient, family, Instructed on discharge instructions, follow up and referral plans. Demonstrated understanding of instructions, follow-up care, 16:09 Patient left the ED. iw NIH Stroke Scale - NIH Stroke Score Date: 09/21/2023 Time: 15:27 Total Score = 0 10. Dysarthria (speech clarity - read or repeat words) - 0(Normal) 11. Extinction and Inattention (visual/tactile/auditory/spatial/personal) - 0(No abnormality) 1a. Level of Consciousness (LOC) - 0(Alert) 1b. Level of Consciousness (LOC) (Month \T\ Age) - 0(Both) 1c. LOC Commands (Open \T\ Closes Eyes/Artist Model) - 0(Both) 2. Best Gaze (Lateral Gaze Paresis) - 0(Normal) 3. Visual Field Loss - 0(No visual loss) 4. Facial Palsy - 0(Normal) 5a. Left Arm: Motor (10-second hold) - 0(No drift) 5b. Right Arm: Motor (10-second hold) - 0(No drift) 6a. Left Leg: Motor (5-second hold - always test supine) - 0(No drift) 6b. Right Leg: Motor (5-second hold - always test supine) - 0(No drift) 7. Limb Ataxia (finger/nose \T\ heel/bowles - test with eyes open) - 0(Absent) 8. Sensory Loss (pinprick arms/legs/face) - 0(Normal) 9. Best Language: Aphasia (description/naming/reading) - 0(No aphasia) Initials: [facility] Signatures: Dispatcher [employer] EDMS Jethro Niño MD MD cha Williams, Irene, RN RN Perrin, Faith, RN RN aa5 Corrections: (The following items were deleted from the chart) 14:43 14:36 Inserted saline lock: 18 gauge in left antecubital area, using aseptic iw technique. 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
[2023-09-21] MEDS ORDERED: ASPIRIN 81 MG CHEWABLE TABLET ONE (16:11)
[2023-09-21 16:25] VITALS: TEMP 97.8; O2SAT 97
[2023-09-21 16:27] VITALS: BP 129/67
--- NOTE | 2023-09-24 13:39 | EKG ---
Test Date: 2023-09-21 Test Time: 14:39:05 Plate Roller: JAMES MEASUREMENT RESULTS: Intervals: Rate: 55 WA: 182 QRSD: 88 QT: 446 QTc: 426 Platina: P: 22 WA: 182 QRS: 4 T: 31 INTERPRETIVE STATEMENTS: Sinus bradycardia Low voltage QRS Borderline ECG Compared to ECG 10/10/2008 06:37:14 Low QRS voltage now present Sinus rhythm no longer present Electronically Signed On 09-24-23 13:30:02 MEASURING CLERK by Raghav Bocanegra
== END 2023-09-21 16:09 | disposition home or self-care (01) ==
LOC: ER 14:19
DX: R00.1 Bradycardia, unspecified (principal); I10 Essential (primary) hypertension
CPT/HCPCS: 93005; 85025; 80048; 36415; 83735; 85610; 80076; 84484; 83690; 83880; 70450; 71045; 96360; 99284; J7030